=== PATIENT | male | born 1950 | race Caucasian/White ===

== ENCOUNTER 2018-09-19 10:51 | Emergency (ER) | payer MEDICARE, OTHER ==
[~2018-09-19] VITALS: Ht 170.2 cm; Wt 78.9 kg
[~2018-09-19 10:51] MED LIST: ASPIRIN EC81 MG PO; DAILY MULTIPLE1 EACH PO; FISH OIL 1,0001 EAC1 PO; GINKGO60 MG PO; LIPITOR40 MG PO; LISINOPRIL10 MG PO; METFORMIN HCL500 MG PO; METOPROLOL SUCC50 MG PO; TERAZOSIN HCL10 MG PO
== END 2018-09-19 13:38 | disposition home or self-care (01) ==
LOC: ED 10:51
DX: S69.91XA Unspecified injury of right wrist, hand and finger(s), initial encounter (principal); W22.8XXA Striking against or struck by other objects, initial encounter; I10 Essential (primary) hypertension; Z88.5 Allergy status to narcotic agent; Z88.1 Allergy status to other antibiotic agents; Z79.82 Long term (current) use of aspirin; Z79.899 Other long term (current) drug therapy; Z79.84 Long term (current) use of oral hypoglycemic drugs
CPT/HCPCS: 73140; 99283

== ENCOUNTER 2021-11-30 11:09 | Emergency (ER) | payer MEDICARE, OTHER ==
[~2021-11-30] VITALS: Ht 170.2 cm; Wt 73.5 kg
[2021-11-30] MEDS ORDERED: ATORVASTATIN CA40 MG PO (11:38)
[2021-11-30] MEDS ORDERED: LISINOPRIL5 MG PO (11:38)
[2021-11-30] MEDS ORDERED: PREDNISONE20 MG PO (11:38)
== END 2021-11-30 14:40 | disposition home or self-care (01) ==
LOC: ED 11:09
DX: K29.70 Gastritis, unspecified, without bleeding (principal); I10 Essential (primary) hypertension; Z88.1 Allergy status to other antibiotic agents; Z88.5 Allergy status to narcotic agent; Z79.899 Other long term (current) drug therapy; Z79.52 Long term (current) use of systemic steroids; Z79.82 Long term (current) use of aspirin
CPT/HCPCS: 36415; 74177; 80053; 81001; 83690; 85025; 96375; 99284-25; J1170; J7030; Q9967

== ENCOUNTER 2024-08-13 08:49 | Emergency (ER) | payer MEDICARE, OTHER ==
[~2024-08-13] VITALS: Ht 170.2 cm; Wt 78.9 kg
[~2024-08-13 08:49] MED LIST changes: +ATORVASTATIN CA40 MG PO; +LISINOPRIL5 MG PO; +PREDNISONE20 MG PO
[2024-08-13 09:14] LABS: EOSINOPHILS 2.6 % (0-6); HEMATOCRIT 42.5 % (35.0-50.0); HEMOGLOBIN 14.7 g/dL (12.0-18.0); LYMPHOCYTES 46.8 % (24-44); MCHC 34.6 g/dl (30-36); MCV 92.5 fl (81-99); MONOCYTES 8.5 % (0-12); NEUTROPHILS 41.1 % (39-80); PLATELET COUNT 150 K/uL (140-440); RDW 14.3 (10.5-15.0)
[2024-08-13 09:52] LABS: ALBUMIN 3.6 g/dL (3.4-5.0); ALBUMIN/GLOBULIN RATIO 1.09 (1.1-2.4); BILIRUBIN, TOTAL 0.8 ng/dL (0.2-1.0); BUN/CREATININE RATIO 13.48 (6.0-28.6); CALCIUM 8.9 mg/dL (8.5-10.1); CREATININE, SERUM 0.89 mg/dL (0.70-1.30); PROTEIN, TOTAL 6.9 g/dL (6.4-8.2)
--- NOTE | 2024-08-13 10:20 | EKG ---
[facility] [address] [facility] [place] [address] Signed Sinus bradycardia Cannot rule out Inferior infarct , age undetermined Abnormal ECG No previous ECGs available Confirmed by Eliot Sanchez DO ([id number]) on 08/13/2024 10:20:31 AM Electronically Signed By: ELIOT SANCHEZ DO 08/13/24 1020 PATIENT NAME: MARILOU GOODSON Electrocardiogram DATE OF : 46 PHYSICIAN: ELIOT SANCHEZ DO REPORT #: [id number] REPORT IS CONFIDENTIAL AND NOT TO BE RELEASED WITHOUT AUTHORIZATION
[2024-08-13 10:59] VITALS: BP 98/76
== END 2024-08-13 10:55 | disposition home or self-care (01) ==
LOC: ED 08:49
PROVIDERS: Emergency Medicine
DX: R00.1 Bradycardia, unspecified (principal); I10 Essential (primary) hypertension; R73.03 Prediabetes; Z88.8 Allergy status to other drugs, medicaments and biological substances; Z88.5 Allergy status to narcotic agent; Z79.82 Long term (current) use of aspirin; Z79.84 Long term (current) use of oral hypoglycemic drugs; Z79.899 Other long term (current) drug therapy
CPT/HCPCS: 36415; 71045; 80053; 83880; 84484; 85025; 93005; 93010; 99285-25

== ENCOUNTER 2025-05-19 07:56 | Day surgery (SDC) | payer MEDICARE, OTHER ==
[~2025-05-19] VITALS: Ht 170.2 cm; Wt 79.0 kg
[~2025-05-19 07:56] MED LIST changes: -FISH OIL 1,0001 EAC1 PO; +FISH OIL 1,0001 EAC6 PO; +IBLOOD GLUCOSE TEST STRIP 1 EA TEST VI PRN; +LACTATED RINGER'S 1,000 ML IV SCH; +LIDOCAINE HCL 1% 5 ML SDV INJ ONE
[2025-05-19 08:19] VITALS: BP 160/71
[2025-05-19] MEDS ORDERED: LIDOCAINE HCL 2% 5 ML SDV ONE (08:55)
--- NOTE | 2025-05-19 09:34 | NUR ---
05/19/25 0934 Diann Valverde 0918-PATIENT ARRIVED TO PACU ON 6L MASK RR EVEN. SINUS BRADYYCARDIA HR 40'S. REACTIVE TO VERBAL SITMULI SLIGHTLY OPENS. ABDOMEN SOFT LAYING LEFT LATERAL. 0933-PATIENT REACTIVE TO VERBAL STIMULI OPENING EYES DENIES PAIN OR NAUSEA. PASSING GAS. RA 99% RR EVEN.
[2025-05-19 10:08] VITALS: BP 127/73
--- NOTE | 2025-05-20 08:52 | OR ---
[facility] [address] [place], [place] [address] Signed DATE OF OPERATION: 05/19/2025 SURGEON: Jose Hwang DO PREOPERATIVE DIAGNOSIS: Colon cancer screening. POSTOPERATIVE DIAGNOSIS: Colon cancer screening with a nonspecific colitis. PROCEDURE PERFORMED: Colonoscopy. ANESTHESIA: IV sedation. ESTIMATED BLOOD LOSS: None. DRAINS: None. COMPLICATIONS: None. DESCRIPTION OF PROCEDURE: The patient was brought to the GI lab and placed in supine position. After induction of IV sedation, the patient was placed in left lateral position and padded to the satisfaction of anesthesia. The Olympus video colonoscope was then introduced into the rectum and while advancing in the central portion of the lumen and insufflating under direct visualization, the scope was advanced through the rectosigmoid, sigmoid colon, descending colon, transverse colon, and to the ascending colon and cecum. The colon was insufflated, and exploration of the mucosal surface was carried out. No intrinsic or extrinsic masses were noted in the ascending colon or cecum. No intrinsic or extrinsic masses were noted in the transverse colon. Scope was brought back into the descending colon. Some scattered nonspecific colitis was noted, but no ulcerations were appreciated in the descending colon. Scope was brought back into the sigmoid colon. Some nonspecific colitis was noted. No ulcerations or bleeding was appreciated. The scope was brought back into the rectosigmoid. Some nonspecific colitis was noted. No other lesions or ulcerations were noted. The scope was then brought back into the Electronically Signed By: JOSE HWANG DO 05/20/25 0852 PATIENT NAME: MARILOU GOODSON OPERATIVE REPORT DATE OF : 46 REPORT #: [id number] PHYSICIAN: JOSE HWANG DO PCP: JUN CHONG PA-C REPORT IS CONFIDENTIAL AND NOT TO BE RELEASED WITHOUT AUTHORIZATION [address] [place], [place] [address] Signed rectum. The scope was withdrawn. The patient tolerated the procedure well, taken to recovery room in satisfactory condition. DO HEIDI Murguia/JENNIFER /[id number] Copies: ~ Electronically Signed By: JOSE HWANG DO 05/20/25 0852 PATIENT NAME: MARILOU GOODSON OPERATIVE REPORT DATE OF : 46 REPORT #: [id number] PHYSICIAN: JOSE HWANG DO PCP: JUN CHONG PA-C REPORT IS CONFIDENTIAL AND NOT TO BE RELEASED WITHOUT AUTHORIZATION
== END 2025-05-19 10:12 | disposition home or self-care (01) ==
LOC: DS 07:56
PROVIDERS: ATTEND Surgery
PROC: 0DJD8ZZ Inspection of Lower Intestinal Tract, Via Natural or Artificial Opening Endoscopic (ICD-10-PCS; principal; 2025-05-19 08:50)
DX: Z12.11 Encounter for screening for malignant neoplasm of colon (principal); K52.9 Noninfective gastroenteritis and colitis, unspecified; I10 Essential (primary) hypertension; E11.9 Type 2 diabetes mellitus without complications; E78.5 Hyperlipidemia, unspecified; N40.0 Benign prostatic hyperplasia without lower urinary tract symptoms; Z79.84 Long term (current) use of oral hypoglycemic drugs; Z79.82 Long term (current) use of aspirin; Z79.899 Other long term (current) drug therapy; Z88.5 Allergy status to narcotic agent
CPT/HCPCS: 00811; J2003; J2704; J7121